=== PATIENT | male | born 1995 | race Caucasian/White ===

== ENCOUNTER 2017-10-22 07:44 | Emergency (ER) | payer OTHER ==
[~2017-10-22] VITALS: Ht 185.4 cm; Wt 69.0 kg
[~2017-10-22 07:44] MED LIST: CIPRO500 MG PO
[2017-10-22 08:31] LABS: INFLUENZA A ANTIGEN None Detected (None Detect); INFLUENZA B ANTIGEN None Detected (None Detect)
[2017-10-22 08:44] VITALS: BP 137/83
== END 2017-10-22 08:44 | disposition home or self-care (01) ==
LOC: M.ERS 07:44
PROVIDERS: Emergency Medicine
DX: J06.9 Acute upper respiratory infection, unspecified (principal); F17.210 Nicotine dependence, cigarettes, uncomplicated; F10.99 Alcohol use, unspecified with unspecified alcohol-induced disorder

== ENCOUNTER 2018-01-04 08:11 | Emergency (ER) | payer OTHER ==
[~2018-01-04] VITALS: Ht 188 cm; Wt 68.0 kg
[2018-01-04 08:20] VITALS: BP 139/83
[2018-01-04] MEDS ORDERED: CLOTRIMAZOLE 1%15 G1 TOP (08:30)
== END 2018-01-04 08:37 | disposition home or self-care (01) ==
LOC: M.ERS 08:11
DX: R21 Rash and other nonspecific skin eruption (principal); F17.210 Nicotine dependence, cigarettes, uncomplicated

== ENCOUNTER 2019-03-12 14:28 | Emergency (ER) | payer OTHER ==
[~2019-03-12] VITALS: Ht 185.4 cm; Wt 70.3 kg
[~2019-03-12 14:28] MED LIST changes: +CLOTRIMAZOLE 1%15 G1 TOP
[2019-03-12 15:37] VITALS: BP 116/67
--- NOTE | 2019-03-13 14:00 | EKG ---
[place] [address] ELECTROCARDIOGRAM REPORT Name: CHANCELLOR Marino DIOR [id number] Admission: 03/12/19 Attend Phys: Discharge: 03/12/19 Date of : [birth year] Report #: [id number] THIS REPORT FOR: //name// [facility] ED Test Date: 2019-03-12 Test Time: 14:39:25 Pat Name: CHANCELLOR DIOR Department: Room: Gender: M [employer] Examiner: : 1995 Requested By: Juvencio Rosen Order Number: [id number] Carin MD: Fabrice Combs Measurements Intervals [place] Rate: 96 P: 253 IN: 142 QRS: 105 QRSD: 96 T: 45 QT: 343 QTc: 434 Interpretive Statements Sinus or ectopic atrial rhythm Borderline right axis deviation Abnormal lateral Q waves inferior st elevation, uncertain etiology No previous ECG available for comparison Electronically Signed On 03-13-2019 13:59:58 CDT by Fabrice Combs [email or web address] <ELECTRONICALLY SIGNED> By: Fabrice Combs MD, [facility] 03/13/19 [id number] Fabrice Combs MD, FACC /EPI
== END 2019-03-12 15:38 | disposition home or self-care (01) ==
LOC: M.ERS 14:28
DX: S46.912A Strain of unspecified muscle, fascia and tendon at shoulder and upper arm level, left arm, initial encounter (principal); X58.XXXA Exposure to other specified factors, initial encounter; Y93.89 Activity, other specified; Y92.89 Other specified places as the place of occurrence of the external cause; Y99.8 Other external cause status